=== PATIENT | female | born 1995 | race American Indian/Alaskan Native ===

== ENCOUNTER 2019-01-09 01:15 | Emergency (ER) | payer OTHER ==
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
[2019-01-09] MEDS ORDERED: ZOFRAN ODT PO ONE (02:36)
[2019-01-09] MEDS ORDERED: IBUPROFEN PO ONE (02:36)
[2019-01-09] MEDS ORDERED: FLEXERIL PO ONE (02:36)
[2019-01-09] MEDS ORDERED: NORCO 5/325 PO ONE (02:36)
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
[2019-01-09 04:52] LABS: Bilirubin,Urine NEG (Negative); Blood,Urine NEG (Negative); Color,Urine Yellow (Yellow); Mucus,Urine 1+ /HPF; Protein,Urine <15 mg/dL mg/dL (Negative)
[2019-01-09 04:54] LABS: HCG Qualitative,Urine Negative (Negative)
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
[2019-01-09 07:00] VITALS: BP 130/90
== END 2019-01-09 06:58 | disposition home or self-care (01) ==
LOC: ED 01:15
DX: S83.92XA Sprain of unspecified site of left knee, initial encounter (principal); S83.91XA Sprain of unspecified site of right knee, initial encounter; M54.5 Low back pain; R07.9 Chest pain, unspecified; V49.49XA Driver injured in collision with other motor vehicles in traffic accident, initial encounter; Y93.89 Activity, other specified; Y92.89 Other specified places as the place of occurrence of the external cause; Y99.8 Other external cause status; M62.838 Other muscle spasm
CPT/HCPCS: 70450; 71046; 72125; 72131; 81001; 81025; Q0162